=== PATIENT | female | born 1970 | race Caucasian/White ===

== ENCOUNTER 2022-08-22 06:13 | Day surgery (SDC) | payer OTHER ==
[~2022-08-22 06:13] MED LIST: Sodium Chloride 0.9% 10 ML Syringe FLUSH PRN; Sodium Chloride 0.9% 2.5 ML Syringe FLUSH PRN; Sodium Chloride 0.9% 20 ML SDV IV PRN
[2022-08-22] MEDS ORDERED: Lactated Ringers 1,000 ML IV SCH (06:15)
[2022-08-22] MEDS ORDERED: droPERidol 5 MG/2 ML SDV IVPUSH PRN (07:03)
[2022-08-22] MEDS ORDERED: Ondansetron 4 MG/2 ML SDV IVPUSH PRN (07:03)
[2022-08-22] MEDS ORDERED: fentaNYL 50 MCG/ML SDV IVPUSH PRN (07:03)
[2022-08-22] MEDS ORDERED: Naloxone 0.4 MG/ML SDV IVPUSH PRN (07:03)
[2022-08-22] MEDS ORDERED: Albuterol 0.083% 2.5 MG/3 ML Neb Soln NEB PRN (07:03)
[2022-08-22] MEDS ORDERED: Morphine 2 MG/ML SYRINGE IVPUSH PRN (07:03)
[2022-08-22] MEDS ORDERED: Metoclopramide 10 MG/2 ML SDV IVPUSH PRN (07:03)
[2022-08-22] MEDS ORDERED: HYDROmorphone 1 MG/ML Syringe IVPUSH PRN (07:03)
[2022-08-22] MEDS ORDERED: Scopolamine 1.5 MG Transdermal Patch TRDERM PRN (07:17)
[2022-08-22] MEDS ORDERED: Propofol 200 MG/20 ML SDV ONE (07:36)
[2022-08-22] MEDS ORDERED: fentaNYL 100 MCG/2 ML SDV ONE (07:37)
[2022-08-22] MEDS ORDERED: Famotidine 20 MG/2 ML SDV ONE (07:50)
[2022-08-22] MEDS ORDERED: Ondansetron 4 MG/2 ML SDV ONE (07:51)
[2022-08-22] MEDS ORDERED: Dexamethasone 4 MG/ML 5 ML MDV ONE (07:51)
[2022-08-22] MEDS ORDERED: HYDROmorphone 2 MG/ML Syringe ONE (08:35)
[2022-08-22] MEDS ORDERED: ePHEDrine 50 MG/ML SDV ONE (09:18)
[2022-08-22] MEDS ORDERED: Ketorolac 30 MG/ML SDV ONE (09:18)
[2022-08-22] MEDS ORDERED: Glycopyrrolate 0.2 MG/ML SDV ONE (09:18)
[2022-08-22] MEDS ORDERED: ceFAZolin 1 GM Vial ONE (09:18)
[2022-08-22 13:29] VITALS: BP 111/63; PULSE 67
== END 2022-08-22 13:10 | disposition home or self-care (01) ==
LOC: MW.SDS 06:13
PROVIDERS: ATTEND Obstetrics & Gynecology
DX: N81.10 Cystocele, unspecified (principal); G43.909 Migraine, unspecified, not intractable, without status migrainosus; Z79.899 Other long term (current) drug therapy; Z88.5 Allergy status to narcotic agent
CPT/HCPCS: 57240; A9270; J0131; J0690; J1100; J1170; J1885; J2405; J2704; J3010; J3490; J7120